=== PATIENT | female | born 1980 | race Caucasian/White ===

== ENCOUNTER 2020-01-25 18:44 | Emergency (ER) | payer SELFPAY ==
[~2020-01-25] VITALS: Ht 165.1 cm; Wt 127.3 kg
[2020-01-25] MEDS ORDERED: PENI500T PO (19:48)
[2020-01-25] MEDS ORDERED: IBUP-1007 PO (19:48)
--- NOTE | 2020-01-25 19:48 | PHYS DOC ---
Past Medical History Past Medical History: Other Additional Past Medical Histor: meniers disease, ankle fx, chronic back pain Past Surgical History: No Surgical History Smoking Status: Never Smoker Alcohol Use: None Drug Use: None General Adult EDM: Chief Complaint: DENTAL PROBLEM HPI: HPI: Patient is a 39 year old female who presents with complaints of dental pain for the past 3 days patient states that she has loose teeth and broken teeth, and she needs to see a dentist, patient states that she has not had an appointment to see a dentist. Patient says she is looking for some pain control to get her through until she is able to see a dentist. Patient denies any fever or chills, denies any recent exposure to or concern for COVID-19 virus. Patient denies any visual changes, nasal congestion, cough, shortness of breath, chest pain, or swelling of her extremities. Is any abdominal pain or problems no nausea vomit ing or diarrhea or constipation. Patient denies any problems urinating. Denies back pain or pain in her joints. Patient denies any rashes of her skin, headaches, focal weaknesses, sensory changes. Is any swelling of her glands. Recent life changes, depressions, anxiety, homicidal or suicidal ideations. Review of Systems: Review of Systems: Constitutional: Denies fever or chills. Eyes: Denies change in visual acuity. HENT: Denies nasal congestion or sore throat. Complains of loose teeth and teeth pain. Respiratory: Denies cough or shortness of breath. Cardiovascular: Denies chest pain or edema. GI: Denies abdominal pain, nausea, vomiting, bloody stools or diarrhea. : Denies dysuria. Musculoskeletal: Denies back pain or joint pain. Integument: Denies rash. Neurologic: Denies headache, focal weakness or sensory changes. Lymphatic: Denies swollen glands. Psychiatric: Denies depression or anxiety. Heart Score: Risk Factors: Risk Factors: DM, Current or recent (<one month) smoker, HTN, HLP, family history of CAD, obesity. Risk Scores: Score 0 - 3: 2.5% MACE over next 6 weeks - Discharge Home Score 4 - 6: 20.3% MACE over next 6 weeks - Admit for Clinical Observation Score 7 - 10: 72.7% MACE over next 6 weeks - Early Invasive Strategies Current Medications: Current Medications Medications (Trade) Dose Ordered Sig/Fritz Start Time Stop Time Status Last Admin Dose Admin Acetaminophen/ Hydrocodone Bitart (Lortab 5/325) 2 tab 1X ONCE 01/25/20 20:00 01/25/20 20:01 Penicillin V Potassium (Veetid) 500 mg 1X ONCE 01/25/20 20:00 01/25/20 20:01 Allergies: Allergies: Allergies Coded Allergies Type Severity Reaction Last Updated Verified No Known Drug Allergies 08/09/13 No Physical Exam: PE: Constitutional: Well developed, well nourished, no acute distress, non-toxic appearance. HENT: Normocephalic, atraumatic, bilateral external ears normal, oropharynx moist, no oral exudates, nose normal. Broken molars upper right rear, loose tooth upper right forward, dental caries throughout teeth without signs of acute abscess or drainage. Eyes: PERRLA, EOMI, conjunctiva normal, no discharge. Neck: Normal range of motion, no tenderness, supple, no stridor. Cardiovascular:Heart rate regular rhythm, no murmur Lungs & Thorax: Bilateral breath sounds clear to auscultation Abdomen: Bowel sounds normal, soft, no tenderness, no masses, no pulsatile masses. Skin: Warm, dry, no erythema, no rash. Back: No tenderness, no CVA tenderness. Extremities: No tenderness, no cyanosis, no clubbing, ROM intact, no edema. Neurologic: Alert and oriented X 3, normal motor function, normal sensory function, no focal deficits noted. Psychologic: Affect normal, judgement normal, mood normal. Current Patient Data: Vital Signs: Vital Signs Date Time Temp Pulse Resp B/P (MAP) Pulse Ox O2 Delivery O2 Flow Rate FiO2 01/25/20 19:15 97.7 96 18 158/78 (104) 100 Room Air 97.7 EKG: EKG: [] Radiology/Procedures: Radiology/Procedures: [] Course & Med Decision Making: Course & Med Decision Making Pertinent Labs and Imaging studies reviewed. (See chart for details) 39-year-old female patient comes emergency department today complaining of dental pain, patient states that she would like some pain control until she is able to see a dentist. Examination was non-concerning for acute infectious process that would warrant immediate attention by dentist. Patient will be treated for dentalgia and started on Pen-Vee K with prescriptions for Pen-Vee K and ibuprofen for pain control patient states she will see a dentist soon. Offered dental references, patient denied need for this stating that she knows a dentist that she will see. Discussed discharge instructions with patient who is amendable to taking Pen-Vee K as directed and ibuprofen as directed, will follow-up with dentist soon, patient had no further questions or concerns. Patient was given return to ER precautions. Patient discharged home. Dragon Disclaimer: Dario Disclaimer: This electronic medical record was generated, in whole or in part, using a voice recognition dictation system. Departure Departure Impression: Primary Impression: Dentalgia Additional Impression: Dental caries Disposition: HOME, SELF-CARE Condition: GOOD Referrals: NO PCP (PCP) Patient Instructions: Dental Caries Additional Instructions: See a dentist soon, return to emergency department for worsening symptoms or further concerns. Scripts Ibuprofen (IBUPROFEN) 600 Mg Tablet 600 MG PO PRN Q6HRS PRN for INFLAMMATION, #14 TAB 0 Refills Prov: STERLING HARRIS APRN 01/25/20 Penicillin V Potassium (PENICILLIN V POTASSIUM) 500 Mg Tablet 1 TAB PO QID, #40 TAB 0 Refills Prov: STERLING HARRIS APRN 01/25/20 Justicifation of Admission Dx: Justifications for Admission: Justification of Admission Dx: N/A STERLING HARRIS APRN Jan 25, 2020 19:48
[2020-01-25] MEDS ORDERED: PENICILLIN V K 250 MG TABLET. PO ONE (20:00)
[2020-01-25] MEDS ORDERED: HYDROcodone/APAP 5/325MG 1 TAB TABLET PO ONE (20:00)
[2020-01-25 20:07] VITALS: BP 116/83
== END 2020-01-25 20:07 | disposition home or self-care (01) ==
LOC: ER 18:44
DX: K02.9 Dental caries, unspecified (principal); K08.89 Other specified disorders of teeth and supporting structures; R60.0 Localized edema; G89.29 Other chronic pain
CPT/HCPCS: 99283

== ENCOUNTER 2020-10-20 17:55 | Emergency (ER) | payer SELFPAY ==
[~2020-10-20] VITALS: Ht 165.1 cm; Wt 118.2 kg
[~2020-10-20 17:55] MED LIST: IBUP-1007 PO; PENI500T PO
[2020-10-20] MEDS ORDERED: PRED20TA PO (20:28)
[2020-10-20] MEDS ORDERED: HYDR-2761 PO (20:28)
--- NOTE | 2020-10-20 20:28 | PHYS DOC ---
Past Medical History Past Medical History: Other Additional Past Medical Histor: meniers disease, ankle fx, chronic back pain Past Surgical History: No Surgical History Smoking Status: Never Smoker Alcohol Use: None Drug Use: None General Adult EDM: Chief Complaint: MECHANICAL FALL HPI: HPI: Patient is a 40 year old female with a past medical history of chronic back pain previous right hip pain presents for evaluation of right hip pain. Patient states she has had pain in her right hip for 1 week. She denies any history of falls. Patient states this evening she was walking to the bathroom when she fell onto her right hip. History obtained from the patient she arrived by private vehicle she ambulated to the ER entrance. Patient is accompanied by her mother. Patient states because of her chronic back and hip pain she normally takes naproxen with relief. Patient states she took naproxen today with no improvement. On exam patient is alert and oriented x4. She is sitting in a wheelchair. Patient lifted up her right lower extremity she has pain with range of motion of her right hip there is no deformity noted. Full range of motion of the right knee and right ankle. Patient does have some tenderness to palpation of the right buttocks. On exam there is no shortening or rotation of her right lower extremity. Plan is to forego x-ray due to chronic hip pain and based on HPI and physical exam I do not suspect a hip.PELVIS fracture or A hip dislocation. Treatment will include Solu-Medrol and Toradol. Patient will be discharged home with pre dnisone and hydrocodone. Review of Systems: Review of Systems: Review of systems: Constitutional symptoms- No fever, no chills. Eyes- No Discharge, No Visual Loss Respiratory symptoms- No shortness of breath, No wheezing, No Dyspnea on Exertion Cardiovascular Systems; No chest pain, No Palpitations, No syncope Gastrointestinal symptoms: NO abdominal pain, no nausea, no vomiting or diarrhea. Genitourinary symptoms: No dysuria. Musculoskeletal symptoms: No back pain Positive extremity pain. NEUROLOGICAL Symptoms: No headache, no generalized weakness; No focal Weakness Heart Score: C/O Chest Pain: N/A Risk Factors: Risk Factors: DM, Current or recent (<one month) smoker, HTN, HLP, family history of CAD, obesity. Risk Scores: Score 0 - 3: 2.5% MACE over next 6 weeks - Discharge Home Score 4 - 6: 20.3% MACE over next 6 weeks - Admit for Clinical Observation Score 7 - 10: 72.7% MACE over next 6 weeks - Early Invasive Strategies Allergies: Allergies: Allergies Coded Allergies Type Severity Reaction Last Updated Verified No Known Drug Allergies 08/09/13 No Physical Exam: PE: General: alert, no acute distress. Skin: warm, dry and intact. Head:: Normocephalic, atraumatic. Neck: Trachea midline. Eyes: EOMI, Normal conjunctiva, No drainage CARDIOVASCULAR: Regular rate and rhythm RESPIRATORY: No respiratory distress Back: Full range of motion. MUSCULOSKELETAL: Full range of motion of bilateral upper tenderness to palpat ion right buttocks no deformities of right lower extremity no shortening or rotation GASTROINTESTINAL: Abdomen soft without rebound or guarding. NEUROLOGICAL: Alert and noted to person, place and time. No neurological deficits observed Psychiatric: Cooperative. Normal judgment EKG: EKG: [] Radiology/Procedures: Radiology/Procedures: [] Course & Med Decision Making: Course & Med Decision Making Pertinent Labs and Imaging studies reviewed. (See chart for details) Dragon Disclaimer: Dario Disclaimer: This electronic medical record was generated, in whole or in part, using a voice recognition dictation system. Attending Co-Sign The patient was seen and interviewed as well as examined at the bedside. The chart was reviewed. The case was discussed. Agree with the plan of care. Departure Departure Impression: Primary Impression: Hip pain, right Disposition: 01 HOME / SELF CARE / HOMELESS Condition: STABLE Referrals: NO PCP (PCP) Patient Instructions: Hip Pain Scripts Hydrocodone Bit/Acetaminophen (HYDROCODONE-APAP 5-325 ) 1 Tab Tablet 1 TAB PO PRN Q6HRS PRN for PAIN, #14 TAB 0 Refills Prov: ALY HOLLEY DO 10/20/20 Prednisone (PREDNISONE) 20 Mg Tablet 1 TAB PO UD for 12 Days, #15 TAB Take 2 tabs days 1,2,3 1.5 tabs days 3,4,5 1 tab days 6,7,8 0.5 tab days 9,10,11 Prov: ALY HOLLEY DO 10/20/20 ALY HOLLEY DO Oct 20, 2020 20:28
[2020-10-20] MEDS ORDERED: KETOROLAC 60 MG/2 ML VIAL. IM ONE (20:30)
[2020-10-20] MEDS ORDERED: methylPREDNISolone SOD SUCC PF 125 MG/2 ML VIAL. IM ONE (20:30)
[2020-10-20 20:35] VITALS: BP 120/87
== END 2020-10-20 21:09 | disposition home or self-care (01) ==
LOC: ER 17:55
DX: M25.551 Pain in right hip (principal); G89.29 Other chronic pain; M54.5 Low back pain; M79.604 Pain in right leg
CPT/HCPCS: 96372; 99284; J1885; J2930